=== PATIENT | female | born 2000 | race Two or more races ===

== ENCOUNTER 2024-08-14 11:36 | Emergency (ER) | payer MEDICAID, SELFPAY ==
--- NOTE | 2024-08-14 13:24 | PC.NURSE ---
called pt back, no answer at this time
--- NOTE | 2024-08-14 13:42 | PC.NURSE ---
Pt was called for the second time to get vitals and see provider. Pt did not answer when name was called and was not found outside.
--- NOTE | 2024-08-14 23:29 | PD.EDADDENDU ---
Emergency Room Addendum Addendum Narrative: I did not do history and physical exam on this patient. The patient was no answer when they called her to the back.
== END 2024-08-14 13:41 | disposition left against medical advice (07) ==
LOC: SERX 15:43
PROVIDERS: Emergency Provider Emergency Medicine
DX: Z53.21 Procedure and treatment not carried out due to patient leaving prior to being seen by health care provider (principal)

== ENCOUNTER 2024-08-14 18:52 | Emergency (ER) | payer MEDICAID, SELFPAY ==
[2024-08-14 19:06] VITALS: BP 109/63; PULSE 78; RESP 18; TEMP 36.8; O2SAT 100; BMI 40.2
--- NOTE | 2024-08-14 19:13 | XR_ITS ---
Examination: Complete OB ultrasound, less than 14 weeks, transabdominal Date and time of exam: August 15, 2024 0011 hrs. Indications: Pelvic pain and vaginal bleeding beginning today Technique: Obstetrical ultrasound images less than 14 weeks performed via transabdominal imaging Findings: A normal shaped single intrauterine gestation is present in the uterus. pole 2.1 cm corresponds to 8 weeks 5 day gestational age Cardiac motion 176 BPM Ultrasonographic survey of visible and placental structures unremarkable. Amniotic fluid volume appears appropriate for this estimated gestational age. Right ovary 3.3 x 2.70 arterial flow Left ovary 2.0 x 2.3 cm arterial flow Impression: Viable intrauterine gestation 8 weeks 5 days.
--- NOTE | 2024-08-14 19:14 | PD.EDRME ---
Rapid Medical Screening Exam RME Arrival date/time: 08/14/24 18:52 24 year old female present to ED for c/o vag bleeding/clot today + 10 week I have greeted and performed a focused initial assessment of this patient. A comprehensive ED assessment and evaluation of the patient, analysis of all test results, and completion of the medical decision making process will be conducted by additional ED providers. Chief Complaint: Vaginal Bleeding Time Seen by Provider: 08/14/24 18:56 Vital signs: Vital Signs Temperature 98.3 F 08/14/24 19:06 Pulse Rate 78 08/14/24 19:06 Respiratory Rate 18 08/14/24 19:06 Blood Pressure 109/63 08/14/24 19:06 Pulse Oximetry (%) 100 08/14/24 19:06 Oxygen Delivery Method Room Air 08/14/24 19:06
[2024-08-14 19:47] LABS: Basophils # (Auto) 0.1 Thou/mm3 (0.0-0.2); Basophils % (Auto) 1 % (0-2.5); Eosinophils # (Auto) 0.3 Thou/mm3 (0.0-0.5); Eosinophils % (Auto) 4 % (0-10); Hematocrit 35.4 % (36.0-46.0); Hemoglobin 12.2 g/dL (12.0-16.0); Immature Granulocytes % (Auto) 2 % (0-0); Lymphocytes % (Auto) 30 % (10-50); Mean Corpuscular HGB Conc 34.5 g/dl (31.0-37.0); Mean Corpuscular Hemoglobin 28.8 pg (25.0-35.0); Mean Corpuscular Volume 84 fL (80-100); Monocytes # (Auto) 0.3 Thou/mm3 (0.0-0.8); Monocytes % (Auto) 5 % (0-12); Neutrophils # (Auto) 3.8 Thou/mm3 (1.8-7.7); Neutrophils % (Auto) 58 % (37-80); Nucleated Red Blood Cell % 0 /100 WBC (0); Platelet Count 291 Thou/mm3 (140-440); Red Blood Count 4.24 Miln/mm3 (4.00-5.20); White Blood Count 6.5 Thou/mm3 (3.6-11.0)
[2024-08-14 20:56] LABS: Beta HCG,Quantitative 98073 mIU/mL (<5.0)
[2024-08-14 22:25] LABS: Collection Type, Urine Voided
[2024-08-14 22:43] LABS: Bacteria,Urine Rare; Bilirubin,Urine Negative (Negative); Blood,Urine 3+ (Negative); Clarity,Urine Turbid (Clear/Hazy); Color,Urine Lt-Yellow (Lt Yel-Yel); Glucose, Urine Negative (Negative); Ketones,Urine Negative (Negative); Leukocyte Esterase,Urine Positive (Negative); Nitrite,Urine Negative (Negative); Protein,Urine Trace (Neg - Trace); RBC,Urine 8 /hpf (0-3); Specific Gravity,Urine 1.014 (1.001-1.035); Squamous Epithelial Cell,Urine 22 /hpf (0-5); Urobilinogen,Urine Negative mg/dL (0.0-1.0); WBC,Urine 5 /hpf (0-5)
--- NOTE | 2024-08-14 22:58 | PD.EDVAGBL ---
ED OB Contraction Preg RMI/HPI General Chief complaint: Vaginal Bleeding Stated complaint: VAGINAL BLEEDING PAIN @ 10WKS; ELOPED EARLY TODAY Time Seen by Provider: 08/14/24 18:56 Arrival date/time: 08/14/24 18:52 RME / HPI RME / HPI Narrative: 08/14/24 18:52 24 year old female present to ED for c/o vag bleeding/clot today + 10 week I have greeted and performed a focused initial assessment of this patient. A comprehensive ED assessment and evaluation of the patient, analysis of all test results, and completion of the medical decision making process will be conducted by additional ED providers. Related Data Home Medications ?Medication ?Instructions ?Recorded ?Confirmed Levothyroxine * (SYNTHROID *) 88 mcg PO QDAY #0 tabs 06/17/16 Allergies Allergy/AdvReac Type Severity Reaction Status Date / Time biotin Allergy Intermediate ITCHY Verified 08/14/24 18:55 Course Orders Category Date Time Status US OB <= 14 weeks fetus Stat Exams 08/14/24 19:13 Ordered ABO/RH Type Stat Lab 08/14/24 19:35 Completed Beta HCG,Quantitative Stat Lab 08/14/24 19:35 Completed CBC Stat Lab 08/14/24 19:35 Completed UA [Urinalysis] Stat Lab 08/14/24 22:03 Completed Vital Signs Vital signs: Vital Signs Temperature 98.3 F 08/14/24 19:06 Pulse Rate 78 08/14/24 19:06 Respiratory Rate 18 08/14/24 19:06 Blood Pressure 109/63 08/14/24 19:06 Pulse Oximetry (%) 100 08/14/24 19:06 Oxygen Delivery Method Room Air 08/14/24 19:06 Discharge Plan Prescriptions/Referrals Prescriptions/Med Rec: No Action Levothyroxine * (SYNTHROID *) 88 MCG tablet 88 mcg PO QDAY Qty: 0 Referrals: Shae Collier PA-C [Primary Care Provider] - In 1 week Patient/Caregiver Discharge Instructions Print Language: Turkish
--- NOTE | 2024-08-15 01:26 | PRELIM_ITS ---
Obstetric ultrasound (transabdominal and transvaginal). August 15, 2024 0011 hours Clinical history: vag bleeding, abd pain, +10 week preg , last menstrual period 06/09/24Technique: Real-time ultrasoun d was performed using Duplex scanning including arterial inflow, venous outflow, color and spectral D oppler analysis of both ovaries.Comparison: NoneFindings:There is an intrauterine gestation with a si ngle live fetus of mean gestational age 8 weeks and 5 days (CRL= 2.1 cm). cardiac activity is p resent at heart rate of 176 beats per minute. Gestational sac configuration appears to be within nor mal limits. No definite subchorionic hemorrhage noted.The uterus measures 10.8 x 6.9 x 7.1 cm.The ri ght ovary measures 3.3 x 1.9 x 2.7 cm and is unremarkable. The left ovary measures 2.0 x 1.5 x 2.3 cm and is unremarkable. There is no free fluid in the pelvis.Impression:Intrauterine gestation with a s aston live fetus of mean gestational age 8 weeks and 5 days. Report Electronically Signed By: Clifton Billingsley 08/15/2024 1:26:20 AM [EST]
[2024-08-15 02:07] VITALS: BP 108/74; PULSE 85; RESP 16; TEMP 37.2; O2SAT 100
--- NOTE | 2024-08-15 02:24 | EDNOTE_ITS ---
ED OB Contraction Preg RMI/HPI General Chief complaint: Vaginal Bleeding Stated complaint: VAGINAL BLEEDING PAIN @ 10WKS; ELOPED EARLY TODAY Time Seen by Provider: 08/14/24 18:56 Arrival date/time: 08/14/24 18:52 24 year old female present to emergency room with c/o of vaginal bleeding and abdominal pain for 1 day. currently 10 weeks LOCATION: suprapubic SEVERITY: Symptoms are described as being severe with limitations on activities of daily living QUALITY: Symptoms are described as being cramping CONTEXT: The patient is unable to identify any inciting events. DURATION/TIMING: The symptoms started approximately one day ago and have been waxing/waning but always present without ever completely resolving. ASSOCIATED SYMPTOMS: The patient is unable to identify any other associated symptoms. MODIFYING FACTORS: The patient is unable to identify any alleviating or aggravating symptoms. PERTINENT ROS: denies trauma, denies domestic violence, no dysuria or hematuria, no orthostatic symptoms, no nausea or vomiting, no fevers, no anorexia, no diarrhea or constipation REVIEW OF SYSTEMS: See History of Present Illness - with the exception of those mentioned in the history of present illness, all other systems reviewed and reported as negative GENERAL: In general the patient is awake, interactive, in an emergency department gurney. HEAD/EYES/EARS/NOSE/THROAT: normo-cephalic, atraumatic, mucus membranes are moist, anicteric, palpebral conjunctiva is pink, trachea is midline. CARDIOVASCULAR: regular rate and regular rhythm, no murmurs, heart sounds are not distant, strong pulses in all four extremities that are equal and symmetric bilateral upper and lower extremities, normal capillary refill. CHEST/PULMONARY: normal chest rise and fall, good air movement, clear to auscultation bilaterally, normal inspiratory to expiratory ratios without evidence of respiratory distress. NECK: No midline/Paraspinal tenderness, no step off ROM/Strenght intact No Kernig and bruzinski sign. No trauma ABDOMEN: soft, not tender, no masses appreciated BACK: normal range of motion without pain. NEUROLOGICAL: cranio-facial features are symmetric, moves all four extremities equally without obvious limitations or weakness. EXTREMITY: no tenderness to palpation over the long bones or large joints of the bilateral upper and lower extremities, no joint swelling, no joint erythema, no signs of trauma, no unilateral leg swelling and no peripheral edema. SKIN: warm, dry, well-perfused, no jaundice, no rash, no telangiectasias or petechia. PSYCH: calm, cooperative, no evidence of psychosis or agitation Related Data Home Medications ?Medication ?Instructions ?Recorded ?Confirmed Levothyroxine * (SYNTHROID *) 88 mcg PO QDAY #0 tabs 06/17/16 Allergies Allergy/AdvReac Type Severity Reaction Status Date / Time biotin Allergy Intermediate ITCHY Verified 08/14/24 18:55 Course Course Course Narrative: This patient presents with vaginal bleeding in the first trimester. DDX includes ectopic, IUP, threatened/inevitable , along with completed . Patient is HDS and without a history of coagulopathy or infectious symptoms. Doubt alternate acute emergent pathology. Plan: bHCG, +/- basic labs, type and screen, TVUS, reassess Quality Measures none Orders Category Date Time Status US OB <= 14 weeks fetus Stat Exams 08/14/24 19:13 Taken ABO/RH Type Stat Lab 08/14/24 19:35 Completed Beta HCG,Quantitative Stat Lab 08/14/24 19:35 Completed CBC Stat Lab 08/14/24 19:35 Completed UA [Urinalysis] Stat Lab 08/14/24 22:03 Completed Vital Signs Vital signs: Vital Signs Temperature 98.3 F 08/14/24 19:06 Pulse Rate 78 08/14/24 19:06 Respiratory Rate 18 08/14/24 19:06 Blood Pressure 109/63 08/14/24 19:06 Pulse Oximetry (%) 100 08/14/24 19:06 Oxygen Delivery Method Room Air 08/14/24 19:06 Vaginal Bleeding Patient data External records reviewed:: [facility] previous records Clinical information provided by:: patient Social determinants that could affect healthcare access:: none Patient has the following chronic illnesses:: none How is presenting disease/condition affected by chronic disease/condition?: no chronic disease Evaluation data The following diagnostics were reviewed and interpreted by me:: lab results and radiology exam(s) Lab and/or radiology exams considered but not ordered:: none Interpretation Summary: US: 8 weeks vital hr 176 hck urine no infection cbc wnl Medications / Prescriptions Medications or Prescriptions considered but not ordered:: none Medication administrations:: none Consultations Consultation(s) initiated? (list below): No Diagnosis Vaginal Bleeding Differential Diagnosis: missed , threatened , dysfunctional uterine bleeding, menometrorrhagia, incomplete , ectopic without intrauterine and vaginal bleeding Most likely diagnosis given after review of the tests above:: vag bleeding Admission Indicated Admission indicated?: not indicated Admission Request Was there a request for admission?: No Disposition Plan Disposition Plan: Discharge Discharge Attestation Discharge Attestation: The patient and all family members were given an opportunity to ask questions and understood the discharge instructions. Discharge instructions specifically effects, indications for sooner follow up or return to the emergency department, and the expected course of current diagnosis. Patient condition: Stable Discharge Plan Plan Patient Disposition: HOME (Self Care) Health Concerns: Follow up with your OB as directed Return to ED if symptoms Prescriptions/Referrals Prescriptions/Med Rec: No Action Levothyroxine * (SYNTHROID *) 88 MCG tablet 88 mcg PO QDAY Qty: 0 Referrals: Shae Collier PA-C [Primary Care Provider] - In 1 week Problem List Clinical Impression: Vaginal bleeding during Patient/Caregiver Discharge Instructions Education Materials: Bleeding During Early Print Language: [place] Stand Alone Forms: [employer] Award Info., Patient Portal Info Letter
== END 2024-08-15 02:28 | disposition home or self-care (01) ==
PROVIDERS: Physician Assistant; Emergency Provider Emergency Medicine; PCP Physician Assistant
DX: O20.9 Hemorrhage in early pregnancy, unspecified (principal); Z3A.10 10 weeks gestation of pregnancy
CPT/HCPCS: 36415; 76801; 81001; 84702; 85025; 86900; 86901; 99284

== ENCOUNTER 2024-08-18 11:30 | Outpatient (RCR) | payer MEDICAID, SELFPAY ==
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
--- NOTE | 2024-08-18 13:26 | PT.ODAYNRPT ---
PT Outpatient Daily Note OP Daily Note Outpatient Physical Therapy Treatment Date: 08/18/24 Visit Reasons: sprain left shoulder Subjective: Pt reports L shoulder is tender and painful. Objective: Please see flow sheet for ther ex list. Assessment: Pt demonstrates poor activity tolerance due to aggravating shoulder symptoms. Plan: Continue with POC. Length of Time (minutes) of Treatment: 30 Minutes Procedure Charges Therapeutic Exercise 30 minutes: Yes
--- NOTE | 2024-09-13 11:55 | PTNOTE_ITS ---
PT OP Progress/Discharge Note Date of Service: 09/13/24 Progress Note/DC Note Progress Note/Discharge Note: DC Note Patient Information Visit Reasons: sprain left shoulder Service Discharge Date: 09/13/24 Status Assessment: Pt has been seen for 2 visits (eval + 1 visit). Pt last treated on 08/18/24. Pt no showed 08/24, 09/01, and 09/13/24 appts. Pt will be d/c from care due to non- compliance per attendance policy. Pt did not meet set goals in therapy; thank you for your referrals.
== END 2024-09-10 23:59 | disposition home or self-care (01) ==
LOC: CPTX 11:30
PROVIDERS: PCP Physician Assistant; Referring Provider Orthopaedic Surgery; Visit Provider Orthopaedic Surgery
DX: M25.512 Pain in left shoulder (principal); S43.402D Unspecified sprain of left shoulder joint, subsequent encounter; X58.XXXD Exposure to other specified factors, subsequent encounter
CPT/HCPCS: 97110; 97162

== ENCOUNTER 2025-02-16 11:06 | Outpatient (CLI) | payer MEDICAID, SELFPAY ==
[2025-02-16 11:16] VITALS: BMI 53.0
[2025-02-16 11:24] VITALS: BP 134/82; PULSE 75; RESP 16; TEMP 36.6; O2SAT 98
[2025-02-16 11:34] VITALS: BP 132/76; PULSE 77
[2025-02-16 11:36] VITALS: BP 134/82; PULSE 75; RESP 16; RESP 98; TEMP 36.6
[2025-02-16 11:44] VITALS: BP 114/64; PULSE 76
[2025-02-16 11:54] VITALS: BP 128/65; PULSE 76
[2025-02-16 12:04] VITALS: BP 114/66; PULSE 71
[2025-02-16 12:10] LABS: Collection Type, Urine Clean Catch
[2025-02-16 12:13] LABS: Basophils # (Auto) 0.0 Thou/mm3 (0.0-0.2); Basophils % (Auto) 0 % (0-2.5); Eosinophils # (Auto) 0.1 Thou/mm3 (0.0-0.5); Eosinophils % (Auto) 2 % (0-10); Hematocrit 32.9 % (36.0-46.0); Hemoglobin 11.4 g/dL (12.0-16.0); Immature Granulocytes Auto 0.13 Thou/mm3 (0.00-0.00); Lymphocytes # (Auto) 1.9 Thou/mm3 (1.0-4.8); Lymphocytes % (Auto) 25 % (10-50); Mean Corpuscular HGB Conc 34.7 g/dl (31.0-37.0); Mean Corpuscular Hemoglobin 28.1 pg (25.0-35.0); Mean Corpuscular Volume 81 fL (80-100); Monocytes # (Auto) 0.5 Thou/mm3 (0.0-0.8); Monocytes % (Auto) 7 % (0-12); Neutrophils # (Auto) 4.9 Thou/mm3 (1.8-7.7); Neutrophils % (Auto) 64 % (37-80); Nucleated Red Blood Cell # 0.00 Thou/mm3 (0.00-0.00); Nucleated Red Blood Cell % 0 /100 WBC (0); Platelet Count 262 Thou/mm3 (140-440); RDW Standard Deviation 45.5 fL (36.4-46.3); Red Blood Count 4.06 Miln/mm3 (4.00-5.20); White Blood Count 7.6 Thou/mm3 (3.6-11.0)
[2025-02-16] MEDS: BETAMET ACET/BETAMET NA PH (Celestone) 6 MG/ML VIAL 12 MG IM (12:15)
[2025-02-16 12:29] LABS: Bacteria,Urine Rare; Bilirubin,Urine Negative (Negative); Blood,Urine Negative (Negative); Clarity,Urine Turbid (Clear/Hazy); Color,Urine Yellow (Lt Yel-Yel); Glucose, Urine Negative (Negative); Ketones,Urine Negative (Negative); Leukocyte Esterase,Urine Positive (Negative); Nitrite,Urine Negative (Negative); PH,Urine 6.0 (5.0-7.0); Protein,Urine 1+ (Neg - Trace); RBC,Urine 5 /hpf (0-3); Specific Gravity,Urine 1.034 (1.001-1.035); Squamous Epithelial Cell,Urine 34 /hpf (0-5); Urobilinogen,Urine 2.0 mg/dL (0.0-1.0); WBC,Urine 17 /hpf (0-5)
[2025-02-16 12:49] LABS: INR 1.0 (0.9-1.3); Partial Thromboplastin Time 29.7 Seconds (22.0-36.0); Prothrombin Time 10.8 Seconds (9.0-12.2)
[2025-02-16 12:50] LABS: Alanine Aminotransferase 20 U/L (10-49); Albumin, Serum 3.7 gm/dL (3.5-5.0); Albumin/Globulin Ratio 1.6 (1.2-2.2); Alkaline Phosphatase 95 U/L (46-116); Anion Gap 11 (7-16); Aspartate Amino Transferase 26 U/L (0-34); BUN/Creatinine Ratio 17 Ratio (12-20); Bilirubin,Total 0.4 mg/dL (0.3-1.2); Blood Urea Nitrogen 15 mg/dL (9-23); Calcium 9.2 mg/dL (8.3-10.6); Calcium (Corrected) 9.4 mg/dL (8.5-10.1); Carbon Dioxide 22.1 mMol/L (20.0-31.0); Chloride 109 mMol/L (98-107); Creatinine (Component) 0.9 mg/dL (0.6-1.3); Estimated Creatinine Clearance 125.8 mL/min (>60); Globulin 2.3 gm/dL (2.3-3.5); Glucose 75 mg/dL (74-106); LDH (Lactate Dehydrogenase) 182 U/L (120-246); Osmolality,Calculated 282 (275-295); Potassium 3.9 mMol/L (3.4-5.1); Sodium 142 mMol/L (136-145); Thyroid Stimulating Hormone 99.40 uIU/mL (0.55-4.78); Total Protein 6.0 gm/dL (5.7-8.2); Uric Acid 5.9 mg/dL (3.1-7.8); eGFR > 60 See Note
[2025-02-16 13:03] LABS: Fibrinogen 650 mg/dL (175-375)
== END 2025-02-16 12:25 | disposition home or self-care (01) ==
LOC: S4S1 11:08 → S4SX 11:08
PROVIDERS: Referring Provider Specialist; Visit Provider Specialist
DX: Z34.90 Encounter for supervision of normal pregnancy, unspecified, unspecified trimester (principal); Z36.89 Encounter for other specified antenatal screening; Z3A.00 Weeks of gestation of pregnancy not specified
CPT/HCPCS: 36415; 59025; 80053; 81001; 83615; 84443; 84550; 85025; 85384; 85610; 85730; 96372; J0702

== ENCOUNTER 2025-02-17 11:17 | Outpatient (CLI) | payer MEDICAID, SELFPAY ==
[2025-02-17] VITALS (9 sets, daily range): BP systolic 130–138; BP diastolic 61–75; PULSE 71–82; RESP 19–99; TEMP 36.6; O2SAT 96–99; BMI 53.2
[2025-02-17] MEDS: BETAMET ACET/BETAMET NA PH (Celestone) 6 MG/ML VIAL 12 MG IM (11:53)
[2025-02-17 12:29] LABS: Protein Total, Urine 31 mg/dL (1-14)
[2025-02-17 12:46] LABS: Protein Total, 24 hr Urine 738 mg/24hr (<149); Protein Total, Urine Volume 2380 mL/24hr (600-1800)
== END 2025-02-17 13:24 | disposition home or self-care (01) ==
LOC: S4S1 11:20 → S4SX 11:21
PROVIDERS: Referring Provider Obstetrics & Gynecology; Visit Provider Obstetrics & Gynecology
DX: Z34.03 Encounter for supervision of normal first pregnancy, third trimester (principal); Z36.9 Encounter for antenatal screening, unspecified; Z3A.36 36 weeks gestation of pregnancy
CPT/HCPCS: 59025; 84156; 96372; J0702

== ENCOUNTER 2025-02-18 11:38 | Observation (INO) | payer MEDICAID, SELFPAY ==
[2025-02-18] VITALS (24 sets, daily range): BP systolic 117; BP diastolic 75; PULSE 58–78; RESP 18–100; TEMP 36.7; O2SAT 97–100; BMI 53.0
--- NOTE | 2025-02-18 13:08 | XR_ITS ---
Examination: AP chest single view Technique one AP portable upright chest single view Date and time: February 18, 2025 1329 hours INDICATIONS: Shortness of breath today. FINDINGS: Normal heart size. The lungs are clear. The osseous structures are intact IMPRESSION: No active disease
--- NOTE | 2025-02-18 13:08 | XR_ITS ---
Examination: Duplex scan of the lower extremity, unilateral right complete Date and time of exam: February 18, 2025 1346 hours INDICATIONS: Calf pain beginning 4 days ago Technique: Duplex scan of the extremity veins using B-mode/grayscale imaging and Doppler spectral analysis and color flow Attention is directed to internal echogenicity, compression and augmentation involving these veins, color flow assessment, spectral analysis Findings: Major deep venous structures in the extremity demonstrate normal course and caliber. There is no evidence of deep vein thrombosis. Normal color flow and spectral analysis Impression: Negative for DVT..
--- NOTE | 2025-02-18 14:36 | PC.NURSE ---
1435 discharge instructions reviewed, labor precautions, kick count, copy given, pt agrees/understands
== END 2025-02-18 14:30 | disposition home or self-care (01) ==
PROVIDERS: Admitting Provider Obstetrics & Gynecology; Visit Provider Obstetrics & Gynecology
DX: O26.893 Other specified pregnancy related conditions, third trimester (principal); Z3A.36 36 weeks gestation of pregnancy; R10.9 Unspecified abdominal pain; M54.9 Dorsalgia, unspecified; M79.661 Pain in right lower leg; R06.02 Shortness of breath
CPT/HCPCS: 59025; 59899; 71045; 93971

== ENCOUNTER 2025-02-26 13:33 | Outpatient (CLI) | payer MEDICAID, SELFPAY ==
[2025-02-26] VITALS (8 sets, daily range): BP systolic 126–132; BP diastolic 75–80; PULSE 78–89; RESP 18–98; TEMP 36.8; O2SAT 98–99; BMI 53.6
--- NOTE | 2025-02-26 14:18 | PC.NURSE ---
1413 discharge instructions labor precautions, kick counts, copies given, informed pt will get a phone when bed is avaiable for iol. pt agrees/understands.
== END 2025-02-26 14:13 | disposition home or self-care (01) ==
LOC: S4S1 13:39 → S4SX 13:40
PROVIDERS: Referring Provider Obstetrics & Gynecology; Visit Provider Obstetrics & Gynecology
DX: Z34.03 Encounter for supervision of normal first pregnancy, third trimester (principal); Z36.9 Encounter for antenatal screening, unspecified; Z3A.37 37 weeks gestation of pregnancy
CPT/HCPCS: 59025

== ENCOUNTER 2025-02-26 21:19 | Inpatient (IN) | payer MEDICAID, SELFPAY ==
[2025-02-26 21:28] VITALS: BP 133/77; PULSE 80; RESP 18; RESP 99; TEMP 36.8; BMI 52.4
[2025-02-26 21:40] VITALS: BP 133/77; PULSE 71
[2025-02-26 22:07] VITALS: BP 133/83; PULSE 71
[2025-02-26 22:23] LABS: ROM Kit Exp Date# 11152027; ROM Kit Lot # 58102387; ROM Swab Mixed By: BM; Rupture of Fetal Membranes Negative (Negative); Swb Mxed in Solvent 1 min? Yes
[2025-02-26] MEDS: ACETAMINOPHEN 500 MG TABLET 1000 MG PO (22:33)
[2025-02-26 23:27] VITALS: BP 118/76; PULSE 67
[2025-02-27] VITALS (21 sets, daily range): BP systolic 98–154; BP diastolic 52–103; PULSE 60–88; TEMP 36.5–36.6; BMI 52.4
[2025-02-27 01:04] LABS: Basophils # (Auto) 0.1 Thou/mm3 (0.0-0.2); Basophils % (Auto) 0 % (0-2.5); Eosinophils # (Auto) 0.1 Thou/mm3 (0.0-0.5); Eosinophils % (Auto) 1 % (0-10); Hematocrit 35.2 % (36.0-46.0); Hemoglobin 12.2 g/dL (12.0-16.0); Immature Granulocytes Auto 0.33 Thou/mm3 (0.00-0.00); Lymphocytes # (Auto) 2.9 Thou/mm3 (1.0-4.8); Lymphocytes % (Auto) 24 % (10-50); Mean Corpuscular HGB Conc 34.7 g/dl (31.0-37.0); Mean Corpuscular Hemoglobin 28.2 pg (25.0-35.0); Mean Corpuscular Volume 82 fL (80-100); Monocytes # (Auto) 0.7 Thou/mm3 (0.0-0.8); Monocytes % (Auto) 5 % (0-12); Neutrophils # (Auto) 8.2 Thou/mm3 (1.8-7.7); Neutrophils % (Auto) 67 % (37-80); Nucleated Red Blood Cell # 0.00 Thou/mm3 (0.00-0.00); Nucleated Red Blood Cell % 0 /100 WBC (0); Platelet Count 313 Thou/mm3 (140-440); RDW Standard Deviation 46.2 fL (36.4-46.3); Red Blood Count 4.32 Miln/mm3 (4.00-5.20); White Blood Count 12.2 Thou/mm3 (3.6-11.0)
[2025-02-27 01:14] LABS: Creatinine,Random Urine 91 mg/dL (30-125); Protein Total, Random Urine 62 mg/dL (1-14)
[2025-02-27 01:23] LABS: Alanine Aminotransferase 13 U/L (10-49); Albumin, Serum 4.1 gm/dL (3.5-5.0); Albumin/Globulin Ratio 1.6 (1.2-2.2); Alkaline Phosphatase 113 U/L (46-116); Anion Gap 11 (7-16); Aspartate Amino Transferase 22 U/L (0-34); BUN/Creatinine Ratio 23 Ratio (12-20); Bilirubin,Total 0.4 mg/dL (0.3-1.2); Blood Urea Nitrogen 18 mg/dL (9-23); Calcium 9.1 mg/dL (8.3-10.6); Calcium (Corrected) 9.1 mg/dL (8.5-10.1); Carbon Dioxide 20.2 mMol/L (20.0-31.0); Chloride 108 mMol/L (98-107); Creatinine (Component) 0.8 mg/dL (0.6-1.3); Estimated Creatinine Clearance 145.7 mL/min (>60); Globulin 2.5 gm/dL (2.3-3.5); Glucose 82 mg/dL (74-106); Osmolality,Calculated 278 (275-295); Potassium 4.3 mMol/L (3.4-5.1); Sodium 139 mMol/L (136-145); Total Protein 6.6 gm/dL (5.7-8.2); eGFR > 60 See Note
--- NOTE | 2025-02-27 02:48 | XR_ITS ---
Examination: age limited TECHNIQUE: Limited transabdominal sonographic images pelvis Date and time: February 27, 2025, 0338 hours INDICATIONS: Diagnosis small for dates, history preeclampsia of FINDINGS: Viable intrauterine gestation cephalic presentation. spine maternal right. Cardiac motion 147 bpm Estimated weight 2374 g Cervix 1.4 cm close IMPRESSION: Viable intrauterine gestation cephalic presentation
[2025-02-27 03:33] LABS: Syphilis Nonreactive (Nonreactive)
--- NOTE | 2025-02-27 04:01 | ESHP_ITS ---
Documentation for date of: 02/27/25 OB Labor/Induct. HPI History of Present Illness Chief complaint: IOL : 1 Para: 0 Term pregnancies: 0 pregnancies: 0 Living children: 0 History of Abortions: Spontaneous and Elective: 0 History of Vaginal deliveries: 0 History of sections: No History of : No Date of last menstrual period: 06/09/24 JOANA: 03/16/25 Gestational Age (weeks): 37 Gestational Age (days): 4 Gestational age based on last menstrual period: 37 History of present illness: Cat is a 24yo with SIUP at 37&4wk presenting for scheduled IOL for significant new proteinuria based on Dr. Ortez's recommendation. No regular/painful ctx. No LOF. No vaginal bleeding. Normal movement. She notes on and off facial swelling, some lower leg swelling, occasional non- persistent HAs. History of Present Adequate Care: Yes Abnormal ultrasound findings: 14%ile growth at 32 weeks Obstetrical complications: other (Proteinuria (24hr UP on 02/17: 738mg), serum creatinine 0.8 Obesity (current BMI 52.4) Hx of thyroid cancer s/p partial thyroidectomy with resultant hypothyroidism treated with levothyroxine 300mcg QD currently (up from 150mcg QD at start of ) Congenital left ear malformation s/p surgery) Labs Maternal Blood Type: B Pos Labs: Positive: Group Beta Strep, Negative: RPR, Hepatitis B, Rubella Titre, HIV, Chlamydia and Gonorrhea and Unknown: Herpes Type 1, Herpes Type 2 and Covid-19 Narrative: 1hr glucola 114 HgbA1c 4.5 SMA carrier NIPT negative, XX MSAFP testing normal TSH 100, T4 0.33 Review of Systems Review of Systems Narrative Review of Systems: Review of Systems Systems Reviewed: All systems reviewed, normal except as documented Constitutional Constitutional: Denies body ache(s), Denies chills, Denies fever(s) and Denies headache(s) ENT Ears, Nose, Mouth, and Throat: Occasional non-persistent headache(s) and Denies vertigo Cardiovascular Cardiovascular: Denies chest pain, Denies palpitations, Denies dyspnea and Denies syncope Respiratory Respiratory: Denies cough, Denies dyspnea Gastrointestinal Gastrointestinal: Denies nausea and Denies vomiting Neurologic Neurologic: Denies convulsions, Occasional non-persistent headache(s), Denies other visual disturbances, Denies syncope and Denies vertigo Past Medical History Family History OTHER FAMILY HX: non-contributory Surgical History SURGICAL: Negative Section OTHER SURGICAL HX: Partial thyroidectomy, left ear surgery with silicone implant to correct congenital ear malformation, another surgery on left neck (uncertain type or purpose) Social History SOCIAL: No tobacco/ETOH/illicit drug use Past Medical History Comments PMH COMMENT: Obesity (current BMI 52.4) Hx of thyroid cancer s/p partial thyroidectomy with resultant hypothyroidism treated with levothyroxine 300mcg QD currently (up from 150mcg QD at start of ) 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, 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 Meds Home Medications and Allergies Home Medications ?Medication ?Instructions ?Recorded ?Confirmed ?Type Levothyroxine * (SYNTHROID *) 88 mcg PO QDAY #0 tabs 1 08/17/15 02/26/25 History Allergies Allergy/AdvReac Type Severity Reaction Status Date / Time biotin Allergy Intermediate ITCHY Verified 02/26/25 23:37 OB Exam Physical Exam Vital signs: Temp Pulse Resp BP 98.2 F 64 18 131/79 H 02/26/25 21:28 02/27/25 03:14 02/26/25 21:28 02/27/25 03:14 Narrative: General: well developed, well nourished, no acute distress, conversant Cardiac: normal heart rate Lungs: breathing without distress Abdomen: soft, obese, gravid, non-tender, no rebound or guarding Extremities: no pain with palpation of calves Detailed Labor and Delivery Exam Dilation (cm): 0 Effacement (%): 0 Cervix position: posterior station: -3 Consistency: firm Presentation: Vertex (by ultrasound) Membranes: intact monitor accelerations: 15x15 monitor decelerations: None extermination supervisor variability: Moderate (11-25) OB Results Labs 02/27/25 00:40 02/27/25 00:40 Labs: Short CBC 02/27/25 Range/Units 00:40 WBC 12.2 H (3.6-11.0) Thou/mm3 Hgb 12.2 (12.0-16.0) g/dL Hct 35.2 L (36.0-46.0) % Plt Count 313 D (140-440) Thou/mm3 BMP 02/27/25 00:40 Sodium 139 Potassium 4.3 Chloride 108 H Carbon Dioxide 20.2 BUN 18 Creatinine 0.8 Glucose 82 Calcium 9.1 Liver Function 02/27/25 Range/Units 00:40 Total Bilirubin 0.4 (0.3-1.2) mg/dL AST 22 (0-34) U/L ALT 13 (10-49) U/L Alkaline Phosphatase 113 (46-116) U/L Albumin 4.1 (3.5-5.0) gm/dL OB Assessment & Plan Assessment and Plan (1) Encounter for induction of labor: Status: Acute Assessment and plan: Cat is a 24yo with SIUP at 37&4wk presenting for scheduled IOL for significant new proteinuria based on Dr. Ortez's recommendation. 24hr UP on 02/17: 738mg. No history of elevated bp's during . SCE: closed/thick/high. Vitals wnl, benign exam. Reassuring assessment overall. care with Dr. Ortez's office. 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 Ampicillin per protocol -Will initiate IOL with: cytotec PV -Anticipate -Safe to proceed Charo Lam MD (2) Proteinuria affecting in third trimester: Status: Acute (3) Hypothyroidism affecting in third trimester: Status: Acute (4) Personal history of malignant neoplasm of thyroid: Status: Acute (5) Obesity affecting in third trimester: Status: Acute (5) Obesity affecting in third trimester Qualifiers: Obesity type affecting : unspecified obesity Qualified Code(s): O 99.213 - Obesity complicating , third trimester
--- NOTE | 2025-02-27 05:23 | PRELIM_ITS ---
Obstetric ultrasound. February 27, 2025 0338 hours Clinical history: EFW, presentation Comparison: August 15, 2024. Findings: The evaluation is limited by body habitus There is a gravid uterus with a live fetus in cephalic presentation of mean gestational age 34 weeks(by biometry). cardiac activity is present at a heart rate of 147 beats per minute. Amniotic fluid is adequate with an ANTOINE of 13.4 cm. Estimated weight is 2374 grams+/- 351 grams. Estimated due date by ultrasound is April 10, 2025. The cervical length is shortened, measuring 1.4 cm. The cervix is closed Impression: The evaluation is limited by body habitus 1. Gravid uterus with a single live fetus in cephalic presentation of mean gestational age 34 weeks . 2. Estimated weight is 2374 grams+/- 351 grams 3. Short closed cervix. Recommend clinical correlation and follow-up. Report Electronically Signed By: Hector Wu 02/27/2025 5:22:44 AM [EST]
[2025-02-27] MEDS: LEVOTHYROXINE SODIUM 100 MCG TABLET 300 MCG PO (07:47)
[2025-02-27] MEDS: ACETAMINOPHEN 500 MG TABLET 1000 MG PO (16:49)
--- NOTE | 2025-02-27 17:05 | PD.LDPN ---
Documentation for date of: 02/27/25 OB Labor Progress Note Pelvic Exam Dilation (cm): 1 Effacement (%): 50 station: -3 Amniotic membrane status: Intact Contractions Monitor mode: External Contraction frequency: irr Contraction intensity: Mild Status status: Category l Assessment and Plan Comments: Intrapartum Note Patient doing well. Has had 3 doses of PV cytotec so far. Comfortable. Vitals wnl, normotensive, afebrile Cat I FHRT ctx irregular SCE: /-3, very anterior. Cook cervical onofre balloon placed with 40cc NS in intra-uterine balloon only, well tolerated. Continue to closely monitor, await onofre balloon falling out In 4 hours, likely start low dose IV pitocin Continue levothyroxine 300mcg PO QD CEFM Regular diet [id number] Safe to proceed Charo Lam MD
[2025-02-28] VITALS (164 sets, daily range): BP systolic 88–159; BP diastolic 56–94; PULSE 56–111; RESP 16–18; TEMP 36.7–38.1; O2SAT 90–100
[2025-02-28] MEDS: ACETAMINOPHEN 500 MG TABLET 1000 MG PO ×2 (04:00→20:15)
[2025-02-28] MEDS: LEVOTHYROXINE SODIUM 100 MCG TABLET 300 MCG PO (07:00)
[2025-02-28] MEDS: RINGERS LACTATED 1000 ML 1,000 ML 125 ML IV ×2 (08:23→09:54)
[2025-02-28] MEDS: Ampicillin Inj 2,000 MG in SODIUM CHLORIDE 0.9% (POP) 100 ML 200 MG IV (09:18)
--- NOTE | 2025-02-28 10:20 | PD.LDPN ---
Documentation for date of: 02/28/25 OB Labor Progress Note Pelvic Exam Dilation (cm): 5 Effacement (%): 90 station: -2 Amniotic membrane status: Intact Contractions Monitor mode: External Contraction frequency: 1-5 Contraction intensity: Mild Status status: Category l Assessment and Plan Comments: Intrapartum Note Cat had some blood tinge to urine this morning, so I removed the cervidil and SCE was 5/80/-2. She was starting to feel ctx more strongly, so I recommended that she get epidural prior to AROM. She did get epidural and while sitting up, had SROM. I just placed FSE and IUPC since ctx were not picking up with external monitoring and there have been some intermittent variable FHR decels. Moderate variability is sustained, so Cat I-II FHRT. Now comfortable with epidural. Will start IV pitocin as soon as FHRT reliably Cat I, titrate to adequate MVUs. She remains normotensive, afebrile Will continue to closely monitor Safe to proceed Charo Lam MD
[2025-02-28] MEDS: Ampicillin Inj 1,000 MG in SODIUM CHLORIDE 0.9% (Popper) 50 ML 50 MG IV (13:30)
[2025-02-28] MEDS: OXYTOCIN in NS 30 units 30 UNIT/500 ML BAG IV (14:11)
[2025-02-28] MEDS: OXYTOCIN in NS 20 units 20 UNIT/1,000 ML BAG 125 UNIT IV (18:02)
--- NOTE | 2025-02-28 18:37 | OBDSUM_ITS ---
Data (Zhu) Data Hx Section: No : 1 Term: 0 : 0 Livin Abortions: Spontaneous & Theraputic: 0 Delivery Data (Zhu) Labor Data Initiation of labor: Induction Induction/Augmentation Agent: Cytotec-PO, Cervical Balloon and Pitocin ROM date: 02/28/25 ROM time: 09:35 Amniotic membrane rupture type: Spontaneous Amniotic fluid description: Blood Tinged Delivery Data Onset of labor date: 02/28/25 Onset of labor time: 09:35 Complete dilation date: 02/28/25 Complete dilation time: 15:52 [place] delivery date: 02/28/25 delivery time: 18:01 Placenta delivery date: 02/28/25 Placenta delivery time: 18:08 Stage 1 total time: Labor - Stage 1 Duration 6 hours and 17 minutes Delivered by: Charo Lam Delivery nurse: Stefania Fletcher RN [place] nurse: Randall Way RN Donor Relations Manager at delivery: No Support person(s) at delivery: fob and mother of pt Delivery Method Delivery method: Normal Vaginal Delivery Presentation: Vertex Anesthesia Type Anesthesia Type: Epidural Placenta Placenta delivery description: Spontaneous Cord blood sent to lab: Yes cord blood collection: Cord Blood Type Episiotomy Episiotomy description: None EBL Estimated blood loss (ml): 300 Umbilical Cord cord description: 3 Vessels Additional Procedures Cat is a 24yo s/p uncomplicated at 37&5wk after undergoing IOL for significant proteinuria in the setting of hypothyroidism on 300mcg levothyroxine and SGA, delivering at 1801 on 02/28/2025. On presentation, SCE was closed/thick/high. She progressed with cytotec, cervical onofre balloon, cervidil and then pitocin augmentation to C/C/0 at which point she began pushing. She received an epidural in labor. With good maternal pushing efforts, infant's head delivered OA and restituted POPPY. Left anterior shoulder delivered easily followed by posterior shoulder and corpus. had spontaneous cry and was vigorous. Apgars 9/9. Short, very thin cord noted. kept at maternal perineum where nose/mouth were suctioned and infant dried/stimulated. After approximately 1 minute, cord was clamped x2 and cut by FOB. Cord blood collected for typing. With fundal massage and very slight cord traction, placenta delivered spontaneously and intact with centrally inserted cord. Bimanual massage performed and IV pitocin given per protocol with fundus then firm at u-2cm and hemostasis noted. Inspection of perineum and vagina revealed no lacerations. Small trickle of blood, so sweep just within cervix/ALISSON performed which retrieved very small amount of clot. Uterus remained firm. All counts correct x2. Mom and were doing well when I left the room. Charo Lam MD Complications Complications: none Data (Zhu) Data [place]'s gender: Female weight (gms): 2470 g Weight (pounds): 5 lbs and 7.1 ozs
[2025-02-28] MEDS: IBUPROFEN TAB 400 MG TABLET 800 MG PO (18:51)
--- NOTE | 2025-02-28 19:49 | PD.EVENT ---
Documentation for date of: 02/28/25 Event Note Event Note: RN notified me of elevated temp 100.4F within 2 hours of delivery. Temp re-taken after 30min, now 100.6F. She did not receive cytotec, had ROM <12 hours and received Ampicillin for GBS pos. Will initiate Unasyn 3g IV Q6hr and tylenol 1000mg PO x1 Will continue to closely monitor vitals Charo Lam MD
[2025-02-28] MEDS: DOCUSATE SOD 100 MG CAPSULE PO (20:18)
[2025-03-01] MEDS: AMPICILLIN/SULBAC INJ 3 GM in SODIUM CHLORIDE 0.9% (POP) 100 ML IV ×4 (02:13→17:11)
[2025-03-01 04:10] VITALS: BP 124/72; RESP 16; TEMP 36.6; O2SAT 98
[2025-03-01 06:12] LABS: Basophils # (Auto) 0.1 Thou/mm3 (0.0-0.2); Basophils % (Auto) 1 % (0-2.5); Eosinophils # (Auto) 0.1 Thou/mm3 (0.0-0.5); Eosinophils % (Auto) 1 % (0-10); Hematocrit 27.7 % (36.0-46.0); Hemoglobin 9.2 g/dL (12.0-16.0); Immature Granulocytes Auto 0.20 Thou/mm3 (0.00-0.00); Lymphocytes # (Auto) 2.2 Thou/mm3 (1.0-4.8); Lymphocytes % (Auto) 15 % (10-50); Mean Corpuscular HGB Conc 33.2 g/dl (31.0-37.0); Mean Corpuscular Hemoglobin 28.4 pg (25.0-35.0); Mean Corpuscular Volume 86 fL (80-100); Monocytes # (Auto) 0.7 Thou/mm3 (0.0-0.8); Monocytes % (Auto) 5 % (0-12); Neutrophils # (Auto) 11.1 Thou/mm3 (1.8-7.7); Neutrophils % (Auto) 77 % (37-80); Nucleated Red Blood Cell # 0.00 Thou/mm3 (0.00-0.00); Nucleated Red Blood Cell % 0 /100 WBC (0); Platelet Count 242 Thou/mm3 (140-440); RDW Standard Deviation 49.6 fL (36.4-46.3); Red Blood Count 3.24 Miln/mm3 (4.00-5.20); White Blood Count 14.5 Thou/mm3 (3.6-11.0)
[2025-03-01] MEDS: IBUPROFEN TAB 400 MG TABLET 800 MG PO ×2 (07:21→17:10)
[2025-03-01] MEDS: LEVOTHYROXINE SODIUM 100 MCG TABLET 300 MCG PO (07:22)
[2025-03-01] MEDS: DOCUSATE SOD 100 MG CAPSULE PO ×2 (08:25→20:48)
[2025-03-01 08:27] VITALS: BP 115/75; RESP 18; TEMP 36.6; O2SAT 96
--- NOTE | 2025-03-01 09:48 | PD.LDPPPRG ---
Subjective Subjective Interval history: Cat is doing well overall. Minimal discomfort. She is ambulating no lightheadedness/dizziness. Voiding spontaneously, no issues. Tolerating regular diet without nausea/vomiting. Lochia tapering as expected. Within 2 hours of delivery, she spiked a fever (100.6F at 1940) and Unasyn 3g IV Q6hr was initiated. Since that time she has remained afebrile. She has no subjective fevers/chills, no CP/SOB. Exam Vital Signs Temp Pulse Resp BP Pulse Ox O2 Del Method 97.9 F 75 18 115/75 96 Room Air 03/01/25 08:27 02/28/25 20:28 03/01/25 08:27 03/01/25 08:27 03/01/25 08:27 03/01/25 08:27 Narrative Exam General: well developed, well nourished, no acute distress, conversant Cardiac: normal heart rate Lungs: breathing without distress Abdomen: soft, post-gravid, obese, non-tender, no rebound or guarding, Fundus firm at u-3cm. Extremities: no pain with palpation of calves, trace edema of BLE Objective Labs 03/01/25 05:10 02/27/25 00:40 Labs: Laboratory Results - last 24 hr 03/01/25 05:10 WBC 14.5 H RBC 3.24 L Hgb 9.2 L D Hct 27.7 L MCV 86 MCH 28.4 MCHC 33.2 RDW Std Deviation 49.6 H Plt Count 242 D Neut % (Auto) 77 Lymph % (Auto) 15 Henderson % (Auto) 5 Eos % (Auto) 1 Baso % (Auto) 1 Neut # (Auto) 11.1 H Lymph # (Auto) 2.2 Henderson # (Auto) 0.7 Eos # (Auto) 0.1 Baso # (Auto) 0.1 Immature Gran # (Auto) 0.20 H Absolute Nucleated RBC 0.00 Immature Gran % 1 H Nucleated RBC % 0 Assessment & Plan Problem List (1) fever, current hospitalization: Status: Acute Assessment and plan: Cat is a 24yo [id number] s/p uncomplicated after undergoing IOL for significant proteinuria in the setting of hypothyroidism on 300mcg levothyroxine, BMI 52, and SGA, delivering at 1801 on 02/28/2025., doing well on PPD 1. Within 2 hours of delivery, she spiked a low-grade fever (100.6F at 1940) and Unasyn 3g IV Q6hr was initiated. She has remained afebrile since that time with normal vitals (pulse 70's-80's) and exam. Hgb 9.2 from 12.2. WBC 14.5 from 12.2. She is hemodynamically stable. Plan: -Continue routine care -Continue Unasyn 3g IV Q6hr until 24hr afebrile (2000 tonight) -Continue levothyroxine 300mcg PO QD -Regular diet -Encourage ambulation -Anticipate discharge home tomorrow if meeting all milestones (2) Encounter for induction of labor: Status: Acute (3) Proteinuria affecting in third trimester: Status: Acute (4) Hypothyroidism affecting in third trimester: Status: Acute (5) Personal history of malignant neoplasm of thyroid: Status: Acute (6) Obesity affecting in third trimester: Status: Acute Time Spent With Patient Time: Total time spent is greater than 50% in coordination of care (as documented) at patient's floor/unit and/or counseling patient:
[2025-03-01] MEDS: BENZO/LANO/ALOE (Dermoplast) 60 GM CAN 1 SPRAY TOP (09:57)
[2025-03-01 12:38] VITALS: BP 126/88; RESP 20; TEMP 36.7; O2SAT 98
[2025-03-01] MEDS: ACETAMINOPHEN 325 MG TABLET PO (12:46)
[2025-03-01 17:05] VITALS: BP 136/87; RESP 18; TEMP 36.7; O2SAT 97
[2025-03-01 18:31] VITALS: BP 124/83
[2025-03-01 20:41] VITALS: BP 123/77; PULSE 89; RESP 18; TEMP 36.6; O2SAT 98
[2025-03-02 04:11] VITALS: BP 130/85; PULSE 89; RESP 16; TEMP 36.7; O2SAT 99
[2025-03-02] MEDS: IBUPROFEN TAB 400 MG TABLET 800 MG PO (04:38)
[2025-03-02 05:52] LABS: Basophils # (Auto) 0.1 Thou/mm3 (0.0-0.2); Basophils % (Auto) 1 % (0-2.5); Eosinophils # (Auto) 0.2 Thou/mm3 (0.0-0.5); Eosinophils % (Auto) 2 % (0-10); Hematocrit 29.4 % (36.0-46.0); Hemoglobin 9.8 g/dL (12.0-16.0); Immature Granulocytes Auto 0.22 Thou/mm3 (0.00-0.00); Lymphocytes # (Auto) 2.4 Thou/mm3 (1.0-4.8); Lymphocytes % (Auto) 22 % (10-50); Mean Corpuscular HGB Conc 33.3 g/dl (31.0-37.0); Mean Corpuscular Hemoglobin 28.7 pg (25.0-35.0); Mean Corpuscular Volume 86 fL (80-100); Monocytes # (Auto) 0.4 Thou/mm3 (0.0-0.8); Monocytes % (Auto) 4 % (0-12); Neutrophils # (Auto) 7.6 Thou/mm3 (1.8-7.7); Neutrophils % (Auto) 70 % (37-80); Nucleated Red Blood Cell # 0.00 Thou/mm3 (0.00-0.00); Nucleated Red Blood Cell % 0 /100 WBC (0); Platelet Count 246 Thou/mm3 (140-440); RDW Standard Deviation 50.5 fL (36.4-46.3); Red Blood Count 3.42 Miln/mm3 (4.00-5.20); White Blood Count 11.0 Thou/mm3 (3.6-11.0)
[2025-03-02] MEDS: LEVOTHYROXINE SODIUM 100 MCG TABLET 300 MCG PO (06:39)
[2025-03-02 08:00] VITALS: BP 131/84; PULSE 75; RESP 16; TEMP 36.9; O2SAT 99
[2025-03-02] MEDS: DOCUSATE SOD 100 MG CAPSULE PO (08:57)
--- NOTE | 2025-03-02 10:46 | ESDS_ITS ---
DS: Providers Provider Date of admission: 02/27/25 02:05 Primary care physician: Physician No Primary/Family Admitting Provider: Charo Lam MD Attending Provider on Admission: Charo Lam MD Consults: 02/28/25 18:35 Referral Routine Comment: Attending Provider on DC: Charo Lam MD Discharging Provider: Charo Lam MD DS: Diagnosis Discharge Diagnosis (1) care and examination immediately after delivery: Status: Acute (2) fever, current hospitalization: Status: Acute (3) Hypothyroidism affecting in third trimester: Status: Acute (4) Personal history of malignant neoplasm of thyroid: Status: Acute (5) Obesity affecting in third trimester: Status: Acute (6) Proteinuria affecting in third trimester: Status: Acute Problem List Completed Was Problem List Reviewed/Reconciled?: Yes Summary/Hosp Course Brief History: Cat is a 24yo [id number] s/p uncomplicated after undergoing IOL for significant proteinuria in the setting of hypothyroidism on 300mcg levothyroxine, BMI 52, and SGA, delivering at 1801 on 02/28/2025., doing well on PPD 2. Within 2 hours of delivery, she spiked a low-grade fever (100.6F at 1940) and Unasyn 3g IV Q6hr was initiated for 24 hours. She has remained afebrile with normal vitals and exam. Hgb 9.8 from 12.2. WBC 11 from 14.5. She is hemodynamically stable with no evidence of infection at this time. She has had an otherwise uncomplicated course, meeting all milestones and feels ready for discharge home. She is ambulating without lightheadedness, tolerating regular diet no n/v, spontaneously voiding without issue. She has no chest pain or shortness of breath. No fevers or chills. Minimal, appropriate discomfort. Peripartum Data Delivery Method: Normal Vaginal Delivery Episiotomy Description: None Status at Discharge Functional status at discharge: independent ambulation Overall status at discharge: patient is back to baseline Time Spent with Patient Time attestation: Total time spent providing and/or coordinating discharge services: Exam Vital Signs Temp Pulse Resp BP Pulse Ox O2 Del Method 98.4 F 75 16 131/84 H 99 Room Air 03/02/25 08:00 03/02/25 08:00 03/02/25 08:00 03/02/25 08:00 03/02/25 08:00 03/02/25 08:00 Narrative Exam General: well developed, well nourished, no acute distress, conversant Cardiac: normal heart rate Lungs: breathing without distress Abdomen: soft, gravid, obese, non-tender, no rebound or guarding Extremities: no pain with palpation of calves Discharge Plan Plan Patient Disposition: HOME (Self Care) Patient condition on transfer: Stable Prescriptions/Referrals Prescriptions/Med Rec: New docusate sodium 100 mg Capsule 100 mg PO BID 10 Days Qty: 20 0RF ibuprofen 800 mg tablet 800 mg PO Q8H PRN (Reason: See Comments) 10 Days Qty: 20 0RF Changed Levothyroxine * (SYNTHROID *) 300 mcg tablet 300 mcg PO QDAY Qty: 30 0RF Referrals: No Primary/Family,Physician [Primary Care Provider] - Patient/Caregiver Discharge Instructions Discharge Activity: activity as tolerated and other Other Discharge Activity Instructions:: vaginal rest and no heavy lifting for 6 weeks Other Discharge Diet Instructions: regular diet Education Materials: After a Vaginal Print Language: Cook Islander Activity Restrictions/Additional Instructions: follow up with your OBGYN in 2 to 4 weeks for visit, call clinic for appointment Stand Alone Forms: [facility] Award Info., Patient Portal Info Letter Discharge Order Discharge Orders: Discharge (Routine); Ordered 03/02/25 Ordered By: Charo Lam Planned Discharge Date 03/02/25 (5) Obesity affecting in third trimester Qualifiers: Obesity type affecting : unspecified obesity Qualified Code(s): O99.213 - Obesity complicating , third trimester
== END 2025-03-02 14:40 | disposition home or self-care (01) | DRG 560 ==
LOC: S4SX 02-28 18:50 → S4NX 02-28 21:29
PROVIDERS: Admitting Provider Obstetrics & Gynecology; Visit Provider Obstetrics & Gynecology
DX: O12.14 Gestational proteinuria, complicating childbirth (principal); E03.9 Hypothyroidism, unspecified; O99.284 Endocrine, nutritional and metabolic diseases complicating childbirth; Z85.850 Personal history of malignant neoplasm of thyroid; O99.214 Obesity complicating childbirth; O99.824 Streptococcus B carrier state complicating childbirth; Z37.0 Single live birth; Z3A.37 37 weeks gestation of pregnancy; O86.4 Pyrexia of unknown origin following delivery
CPT/HCPCS: 36415; 59025; 59409; 59899; 76815; 80053; 81001; 82570; 84112; 84156; 85025; 86780; 86850; 86900; 86901; 94762; J0290; J0295; J2590; J2795; J3010; J7050; J7120; A9270